=== PATIENT | male | born 1990 | race Caucasian/White ===

== ENCOUNTER 2021-02-25 10:09 | Emergency (ER) | payer MEDICAID, OTHER ==
[~2021-02-25] VITALS: Ht 167.6 cm; Wt 88.9 kg
[~2021-02-25 10:09] MED LIST: NO MEDS
[2021-02-25 10:57] VITALS: BP 119/71
--- NOTE | 2021-02-25 12:15 | NUR ---
30/M C/O PRODUCTIVE COUGH AND SORE THROAT X4 DAYS AND INTERMITTENT CHILLS. REPORTS TAKING MUCINEX WITH MILD RELIEF. DENIES FEVER, CHEST PAIN OR SOB. DENIES COVID EXPOSURE. MEDHX: DENIES ALLERGIES: DENIES
[2021-02-25] MEDS ORDERED: DEXAMETHASONE 10 MG/ML VIAL IM ONE (12:20)
[2021-02-25] MEDS ORDERED: BENZONATATE 100 MG CAPLF PO PRN (12:20)
[2021-02-25] MEDS ORDERED: ACET-10509 PO (12:27)
[2021-02-25] MEDS ORDERED: BENZ-196 PO (12:27)
[2021-02-25] MEDS ORDERED: AZIT250T4 PO (12:27)
--- NOTE | 2021-02-25 12:38 | NUR ---
PO MEDS GIVEN-NADR AT THIS TIME, COVID SWAB SENT TO LAB
--- NOTE | 2021-02-25 13:39 | NUR ---
Patient discharged with v/s stable. Written and verbal after care instructions given and explained. Patient alert, oriented and verbalized understanding of instructions. Ambulatory with steady gait. All questions addressed prior to discharge. ID band removed. Patient advised to follow up with PMD. Rx of ACETAMINOPHEN, Z-PACK, TESSALON given. Patient educated on indication of medication including possible reaction and side effects. Opportunity to ask questions provided and answered.
[2021-02-25 16:54] VITALS: BP 111/72
== END 2021-02-25 13:39 | disposition home or self-care (01) ==
LOC: MED 10:09
DX: U07.1 COVID-19 (principal); J18.9 Pneumonia, unspecified organism; Z79.899 Other long term (current) drug therapy; Z79.1 Long term (current) use of non-steroidal anti-inflammatories (NSAID)
CPT/HCPCS: 71045; 96372; 99284; J1100; U0003

== ENCOUNTER 2023-07-19 15:04 | Emergency (ER) | payer OTHER ==
[~2023-07-19] VITALS: Ht 167.6 cm; Wt 95.3 kg
[~2023-07-19 15:04] MED LIST changes: +ACET-10509 PO; +AZIT250T4 PO; +BENZ-196 PO
[2023-07-19 16:01] VITALS: BP 124/81; PULSE 116; RESP 19; TEMP 103.1; O2SAT 94
[2023-07-19 16:32] LABS: FLU A ANTIGEN negative (NEGATIVE); FLU B ANTIGEN NEGATIVE (NEGATIVE)
[2023-07-19] MEDS: IBUPROFEN 600 MG TAB PO ONE (16:41)
[2023-07-19] MEDS: ACETAMINOPHEN EXTRA STRENGTH 500 MG TAB PO ONE (16:41)
[2023-07-19] MEDS ORDERED: DEXT5SYR3 PO (17:13)
[2023-07-19] MEDS ORDERED: IBUP-2213 PO (17:13)
== END 2023-07-19 17:25 | disposition home or self-care (01) ==
LOC: MED 15:04
DX: J06.9 Acute upper respiratory infection, unspecified (principal); Z20.822 Contact with and (suspected) exposure to COVID-19; Z79.899 Other long term (current) drug therapy; Z79.1 Long term (current) use of non-steroidal anti-inflammatories (NSAID); Z79.2 Long term (current) use of antibiotics
CPT/HCPCS: 99283

== ENCOUNTER 2023-09-09 10:55 | Emergency (ER) | payer OTHER ==
[~2023-09-09] VITALS: Ht 167.6 cm; Wt 94.3 kg
[~2023-09-09 10:55] MED LIST changes: +DEXT5SYR3 PO; +IBUP-2213 PO
[2023-09-09 10:57] VITALS: BP 149/95; PULSE 87; RESP 18; TEMP 98; O2SAT 99
[2023-09-09 14:01] VITALS: BP 119/75; PULSE 68; RESP 18; TEMP 98; O2SAT 97
== END 2023-09-09 14:06 | disposition home or self-care (01) ==
LOC: MED 10:55
DX: R42 Dizziness and giddiness (principal); F14.90 Cocaine use, unspecified, uncomplicated; Z71.6 Tobacco abuse counseling; Z79.899 Other long term (current) drug therapy
CPT/HCPCS: 93005; 99283

== ENCOUNTER 2024-03-19 06:35 | Emergency (ER) | payer OTHER ==
[~2024-03-19] VITALS: Ht 167.6 cm; Wt 99.5 kg
[~2024-03-19 06:35] MED LIST changes: -ACET-10509 PO; +ACET500T99 PO
[2024-03-19 06:42] VITALS: BP 134/84; PULSE 77; RESP 18; TEMP 97.7; O2SAT 96
[2024-03-19] MEDS ORDERED: ONDA-188 PO (06:59)
[2024-03-19 07:15] VITALS: BP 134/84; PULSE 77; RESP 18; TEMP 97.7; O2SAT 96
[2024-03-19 08:20] LABS: FLU A ANTIGEN NEGATIVE (NEGATIVE); FLU B ANTIGEN NEGATIVE (NEGATIVE)
== END 2024-03-19 07:15 | disposition home or self-care (01) ==
LOC: MED 06:35
DX: J06.9 Acute upper respiratory infection, unspecified (principal); Z20.822 Contact with and (suspected) exposure to COVID-19; Z79.899 Other long term (current) drug therapy
CPT/HCPCS: 99283

== ENCOUNTER 2024-03-28 08:55 | Emergency (ER) | payer OTHER ==
[~2024-03-28] VITALS: Ht 167.6 cm; Wt 97.5 kg
[~2024-03-28 08:55] MED LIST changes: +ONDA-188 PO
[2024-03-28 08:57] VITALS: BP 170/96; PULSE 90; RESP 18; TEMP 97.5; O2SAT 96
[2024-03-28] MEDS: ONDANSETRON 4 MG/2 ML VIAL IVP ONE (09:29)
[2024-03-28] MEDS: MORPHINE SULFATE 4 MG/ML SYR IVP ONE (09:30)
[2024-03-28 10:08] LABS: BASOPHILS # (AUTO) 0.1 K/uL (0.00-0.22); BASOPHILS % (AUTO) 1.5 % (0.0-2.0); EOSINOPHILS # (AUTO) 0.1 K/uL (0-0.4); EOSINOPHILS % (AUTO) 1.6 % (0.0-4.0); HEMATOCRIT 46.5 % (36-52); HEMOGLOBIN 15.9 g/dL (12.0-18.0); LYMPHOCYTES # (AUTO) 1.9 K/uL (2.0-11.5); LYMPHOCYTES % (AUTO) 30.3 % (20.5-51.1); MEAN CORPUSCULAR HEMOGLOBIN 30 pg (27-31); MEAN CORPUSCULAR HGB CONC 34 g/dL (33-37); MEAN CORPUSCULAR VOLUME 88.6 fL (80-94); MONOCYTES # (AUTO) 0.7 K/uL (0.8-1.0); MONOCYTES % (AUTO) 10.5 % (1.7-9.3); NEUTROPHILS # (AUTO) 3.5 K/uL (1.8-7.7); NEUTROPHILS % (AUTO) 56.1 % (42.2-75.2); PLATELET COUNT (AUTO) 330 K/uL (140-450); RED BLOOD CELL COUNT(AUTO) 5.25 MIL/uL (4.20-6.10); RED CELL DISTRIBUTION WIDTH 14.6 % (11.6-13.7); WHITE BLOOD COUNT (AUTO) 6.3 K/uL (4.8-10.8)
[2024-03-28 10:24] LABS: ALBUMIN 3.8 g/dL (3.4-5.0); ANION GAP 12.7 (8-16); CALCIUM 8.7 mg/dL (8.5-10.1); CARBON DIOXIDE 29.2 mmol/L (21-32); CREATININE 0.9 mg/dL (0.6-1.3); POTASSIUM 3.9 mmol/L (3.5-5.1); TOTAL BILIRUBIN 0.5 mg/dL (0.0-1.0); TOTAL PROTEIN, SERUM 7.5 g/dL (6.4-8.2)
[2024-03-28 10:29] LABS: APPEARANCE,URINE CLEAR (CLEAR); BILIRUBIN,URINE NEGATIVE (NEGATIVE); BLOOD, URINE NEGATIVE (NEGATIVE); COLOR,URINE YELLOW (YELLOW); LEUKOCYTE ESTERASE ,URINE NEGATIVE (NEGATIVE); NITRITE, URINE NEGATIVE (NEGATIVE); PROTEIN,URINE NEGATIVE (NEGATIVE); UGLUCOSE NEGATIVE (NEGATIVE); UROBILINOGEN,URINE 0.2 EU/dL (0.2 - 1)
[2024-03-28 11:04] VITALS: BP 144/74; PULSE 71; RESP 16; TEMP 97.5; O2SAT 98
== END 2024-03-28 11:04 | disposition home or self-care (01) ==
LOC: MED 08:55
DX: R16.0 Hepatomegaly, not elsewhere classified (principal); R03.0 Elevated blood-pressure reading, without diagnosis of hypertension; R11.0 Nausea; Z79.899 Other long term (current) drug therapy
CPT/HCPCS: 36415; 76705; 80053; 81003; 83690; 85025; 96374; 96375; 99285; J2270; J2405; Q0092

== ENCOUNTER 2024-04-15 15:51 | Emergency (ER) | payer OTHER ==
[~2024-04-15] VITALS: Ht 167.6 cm; Wt 100.5 kg
[2024-04-15 16:05] VITALS: BP 162/102; PULSE 80; RESP 16; TEMP 98.7; O2SAT 96
[2024-04-15 16:19] VITALS: O2SAT 96
[2024-04-15] MEDS ORDERED: SULF-59 PO (17:58)
[2024-04-15] MEDS ORDERED: IBUP-2213 PO (17:58)
[2024-04-15] MEDS: LIDOCAINE MPF 1% 10 MG/ML VIAL INJ ONE (18:04)
== END 2024-04-15 18:09 | disposition home or self-care (01) ==
LOC: MED 15:51
DX: L72.3 Sebaceous cyst (principal); Z79.899 Other long term (current) drug therapy
CPT/HCPCS: 10060; 99283; J2003